=== PATIENT | female | born 2000 | race Caucasian/White ===

== ENCOUNTER 2022-03-26 04:30 | Emergency (ER) | payer SELFPAY ==
--- NOTE | ~2022-03-26 | CT_ITS ---
EXAMINATION: CT abdomen pelvis wo con DATE: 03/26/2022 05:54 INDICATION: Left lower quadrant abdominal pain. Constipation. TECHNIQUE: Computed tomography (CT) of the abdomen and pelvis was performed without intravenous contr ast. Automated exposure control and iterative reconstruction technique were employed. The dose-length product was 307.22 mGy-cm. COMPARISON: None. FINDINGS: The visualized portions of the lung bases demonstrate minimal atelectasis. No pleural effus ion. The heart size is normal. No pericardial effusion. There is mild pectus excavatum. There is a 5 mm cyst in the liver. The gallbladder is normal. Calcifications in the spleen are consistent with old granulomatous disease. The pancreas, adrenal glands, and right kidney are normal. There is mild left hydronephrosis. There is a 5 mm stone in proximal left ureter. There are no dilated loops of bowel. The appendix is not visualized. There is a 3.0 cm cyst in left ovary, likely a follicular cyst. There are no pathologically enlarged lymph nodes. There is no free intraperitoneal fluid. The bones are un remarkable. IMPRESSION: 1. 5 mm stone in proximal left ureter with mild left hydronephrosis. Reviewed, dictated and finalized at location A.
[2022-03-26 04:33] VITALS: BP 120/78; PULSE 116; RESP 20; TEMP 36.4; O2SAT 98
[2022-03-26 05:10] LABS: Basophils Percent Auto 0.3 % (0.2-1.2); Eosinophils Percent Auto 0.7 % (0-4.4); Hematocrit 40.3 % (37.0-47.0); Hemoglobin 13.4 g/dL (12.0-15.0); Immature Granulocyte Absolute 0.01 K/mm3 (0.00-0.031); Immature Granulocyte Percent A 0.2 % (0-0.5); Lymphocytes Absolute Auto 2.19 K/mm3 (0.9-3.2); Lymphocytes Percent Auto 35.6 % (18.3-44.2); Mean Corpuscular HGB Conc 33.3 g/dl (32-36); Mean Corpuscular Hemoglobin 30.2 pg (26-34); Mean Corpuscular Volume 90.8 fl (80-100); Mean Platelet Volume 11.3 fl (7.4-10.4); Monocytes Absolute Auto 0.6 K/mm3 (0.1-0.6); Monocytes Percent Auto 9.4 % (2.6-8.5); Neutrophils Absolute Auto 3.3 K/mm3 (1.3-6.7); Neutrophils Percent Auto 53.8 % (45.5-73.1); Platelet Count Result 234 k/mm3 (150-375); Red Blood Count 4.44 M/mm3 (4.2-5.4); White Blood Count 6.2 K/mm3 (4.5-10.0)
--- NOTE | 2022-03-26 05:19 | ED.ABDPAIN ---
HPI - Abdominal Pain General Chief Complaint: Abdominal Pain Stated Complaint: constipation, left flank pain Time Seen by Provider: 03/26/22 05:16 History of Present Illness HPI narrative: Patient is a 21-year-old female complaining of left lower quadrant pain, 8 out of 10, aching, accompanied by nausea that started 3 days ago. Patient states that she has not had a bowel movement for the past 3 days, has taken stool softeners but no relief. Patient denies any urinary symptoms, fever or chills. Related Data Allergies Allergy/AdvReac Type Severity Reaction Status Date / Time azithromycin Allergy Severe Anaphylactic Verified 03/26/22 04:44 Shock Penicillins Allergy Unknown Rash/swelling Verified 03/26/22 04:44 in throat Review of Systems Review of Systems: All systems reviewed & are unremarkable except as noted in HPI and below Constitutional: Constitutional: Denies body ache(s), Denies chills, Denies excessive sweating, Denies fatigue, Denies fever(s), Denies headache(s), Denies lethargy, Denies malaise, Denies weakness and Denies weight loss Eyes: Eyes: Denies blurry vision, Denies change in vision and Denies loss of vision ENT: Denies dizziness, Denies ear discharge, Denies headache(s), Denies lip swelling, Denies epistaxis, Denies nasal congestion, Denies neck pain, Denies throat swelling and Denies tongue swelling Cardiovascular: Cardiovascular: Denies chest pain, Denies chest pain at rest, Denies chest pain with activity, Denies diaphoresis, Denies rapid heart rate, Denies edema, Denies irregular heart rhythm, Denies lightheadedness, Denies palpitations, Denies dyspnea and Denies dyspnea on exertion Respiratory: Respiratory: Denies chest congestion, Denies cough, Denies hemoptysis, Denies dyspnea and Denies dyspnea on exertion Gastrointestinal: Gastrointestinal: Denies melena, Denies hematochezia, Denies diarrhea, Denies vomiting and Denies hematemesis Musculoskeletal: Musculoskeletal: Denies abnormal gait, Denies deformity, Denies joint swelling, Denies limited range of motion, Denies neck pain and Denies numbness Neurologic: Denies Abnormal speech present, Denies abnormal gait, Denies confusion, Denies dizziness, Denies headache(s), Denies focal weakness, Denies loss of vision, Denies numbness, Denies Other visual disturbances, Denies Sensory deficit (Neuro) and Denies weakness Psychiatric: Psychiatric: Denies confusion, Denies depression, Denies auditory hallucinations, Denies homicidal ideation and Denies suicidal ideation Endocrine: Endocrine: Denies cold intolerance, Denies excessive sweating, Denies fatigue, Denies heat intolerance and Denies palpitations Hematologic/Lymphatic: Hematologic/Lymphatic: Denies easy bleeding and Denies easy bruising Allergic/Immunologic: Allergic/Immunologic: Denies lip swelling, Denies throat swelling and Denies tongue swelling [facility] Family History Family History (Updated 10/27/15 @ 15:46 by DOCTOR UNKNOWN) Father Family history of malignant neoplasm of brain Other Family history of coronary artery disease Family history of malignant neoplasm of breast Social History Social History Smoking status: Never smoker Second hand tobacco smoke exposure: Yes Alcohol intake: never Comments Past medical history: None Exam Const: General: cooperative, healthy appearing, comfortable, no acute distress, well developed, alert and awake; No confusion Orientation/consciousness: oriented to person, oriented to place, oriented to time, patient oriented x3 and No confusion Limitations: no limitations HENMT: Head: normal to inspection, normocephalic and atraumatic Ears: hearing grossly normal bilaterally, TM normal on the right and TM normal on the left General nose exam: Normal external nose present, Normal nares present and No nasal discharge present Face and sinus: normal facial exam Mouth: Yes Normal oral and palatal mucosa present, Yes lip normal, Yes tongue normal
[2022-03-26 05:22] LABS: Alanine Aminotransferase 19 U/L (6-35); Albumin Level 4.3 g/dL (3.5-5.1); Alkaline Phosphatase 87 U/L (38-126); Anion Gap 13 mmol/L (8-16); Aspartate Amino Transferase 23 U/L (14-36); Bilirubin,Total 0.6 mg/dL (0.2-1.3); Blood Urea Nitrogen 9 mg/dL (7-17); Calcium 11.6 mg/dL (8.4-10.2); Carbon Dioxide 20 mmol/L (22-30); Chloride 103 mmol/L (98-107); Estimated Glomerular Filt Rate > 60; Glucose 117 mg/dL (65-110); Lipase 36 U/L (23-300); Potassium 3.6 mmol/L (3.4-5.0); Sodium 136 mmol/L (137-145)
[2022-03-26] MEDS: PROMETHAZINE HCL 25 MG/ML AMPUL 12.5 MG IV PUSH (05:23)
[2022-03-26] MEDS: SODIUM CHLORIDE 0.9% IV 1,000 ML 999 ML IV CONT (05:23)
[2022-03-26] MEDS: KETOROLAC 30 MG/ML VIAL (*BKC) IV PUSH (05:24)
[2022-03-26 05:41] LABS: Bacteria Urine Trace /hpf; Mucus Urine Heavy /lpf; RBC Urine 21-50 /hpf (0-2); Squamous Epithelial Cell Urine Many /hpf (Few); Transitional Epi Cells Urine Rare /hpf (None Seen)
[2022-03-26 05:53] LABS: Add Urine Microscopic? YES; Appearance Urine Clear (Clear); Bilirubin Urine 1+ (Negative); Blood Urine 2+ (Negative); Color Urine Yellow (Yellow); Glucose Urine UA Negative (Negative); Ketones Urine 2+ mg/dL (Negative); Leukocyte Esterase Ur Trace LEU/UL (Negative); Nitrate Urine Negative (Negative); Protein Urine Trace mg/dL (Negative)
[2022-03-26 06:02] VITALS: BP 117/69; PULSE 64; RESP 14; O2SAT 98
[2022-03-26] MEDS: TAMSULOSIN HCL 0.4 MG CAPSULE PO (07:23)
== END 2022-03-26 07:27 | disposition home or self-care (01) ==
PROVIDERS: Emergency Provider Emergency Medicine
DX: N13.2 Hydronephrosis with renal and ureteral calculous obstruction (principal)
CPT/HCPCS: 36415; 74176; 80053; 81001; 81025; 83690; 85025; 87086; 87088; 96361; 96374; 96375; 99284; A9270; J1885; J2550; J7030

== ENCOUNTER 2022-03-26 17:24 | Observation (INO) | payer MEDICAID, SELFPAY ==
--- NOTE | ~2022-03-26 | XR_ITS ---
EXAMINATION: XR retrograde pyelo w/stent LT DATE: 03/27/2022 14:00 CDT INDICATION: CYSTO LEFT SIDE . TECHNIQUE: 11 fluoroscopic images of the abdomen and pelvis were obtained during retrograde pyelograp hy with stent placement performed by the surgeon. I was not present in the operating room. Fluoroscop y exposure time was 71.1 seconds. Cumulative dose was [id number] mGy2. COMPARISON: CT abdomen and pelvis and x-ray abdomen 03/26/2022 FINDINGS: Fluoroscopic images document catheter and wire access into the right collecting system. Following ure teral stent placement distal coil projects over the bladder. Proximal coil not imaged. IMPRESSION: Fluoroscopic documentation of left retrograde pyelography with stent placement. Please refer to the o perative note for complete procedural details . Reviewed, dictated and finalized at location K. IMPRESSION: Fluoroscopic documentation of left retrograde pyelography with stent placement. Please refer to the operative note for complete procedural details .
--- NOTE | ~2022-03-26 | XR_ITS ---
EXAM: XR abdomen/kub 1V DATE: 03/26/2022 20:24 HISTORY: 5 mm l renal stone, HX OF STONES, PAIN ON LT SIDE . COMPARISON: CT abdomen and pelvis 03/26/2022. FINDINGS: Clear lung bases. Normal bowel gas pattern. No organomegaly. Unchanged 5 mm calculus proje cting over the left proximal ureter. Regional bones and soft tissues normal for age. IMPRESSION: Stable 5 mm proximal left ureteral stone. Reviewed, dictated and finalized at location K.
[2022-03-26 17:27] VITALS: BP 117/65; PULSE 102; RESP 22; TEMP 36.8; O2SAT 100
--- NOTE | 2022-03-26 18:14 | PC.NURSE ---
PA at bedside to assess pt.
--- NOTE | 2022-03-26 18:18 | ED.ABDPAIN ---
HPI - Abdominal Pain General Chief Complaint: Abdominal Pain Stated Complaint: renal stone, pain uncontrolled at home Time Seen by Provider: 03/26/22 18:10 History of Present Illness HPI narrative: 21-year-old female here for evaluation of left flank pain, nausea and vomiting for the past day and a half. Patient was seen in the ED this morning, was diagnosed with 5 mm proximal kidney stone on the left, was discharged after pain was controlled with IV medications. Patient states that shortly after coming home, the pain returned, she became nauseous, and has been unable to tolerate any p.o. intake. She was prescribed [place], states it has not helped her pain. Was also prescribed bactrim. She does have a history of kidney stones, has never had a procedure done. Related Data Allergies Allergy/AdvReac Type Severity Reaction Status Date / Time azithromycin Allergy Severe Anaphylactic Verified 03/26/22 04:44 Shock Penicillins Allergy Unknown Rash/swelling Verified 03/26/22 04:44 in throat Review of Systems Review of Systems: Gen.: Denies fevers or chills Eyes: Denies eye pain or visual change ENT: Denies congestion Respiratory: Denies shortness of breath or cough CV: Denies chest pain or palpitations GI: Reports nausea and vomiting. Denies abdominal pain or diarrhea denies burning, urgency, frequency or hematuria Musculoskeletal: Reports left flank pain. Denies back pain or muscle pain Neuro: Denies numbness, tingling, weakness or focal weakness Skin: Denies rash Except as documented, all other systems reviewed and negative [facility] Family History Family History (Updated 03/26/22 @ 23:55 by Pilar Pham RN) Father Family history of malignant neoplasm of brain Other Family history of malignant neoplasm of breast Other Family history of coronary artery disease Social History Social History Smoking status: Never smoker Second hand tobacco smoke exposure: No Alcohol intake: current Substance use: never Substance use type: marijuana Last use: 03/10- Spiritual care concerns: No Exam Narrative: APPEARANCE: Uncomfortable appearing. Head: Normocephalic and atraumatic. EYES: PERRLA/EOMI, conjunctivae clear NOSE: No nasal drainage EARS: External ear normal in appearance THROAT: Oropharynx is clear. Mucous membranes are moist. NECK: Supple. No adenopathy, no masses. RESPIRATORY: Airway patent, respirations nonlabored. Clear to auscultation bilaterally, no rales, rhonchi, wheezing. CARDIOVASCULAR: Regular rate and rhythm without murmurs, rubs, or gallops. ABDOMINAL: Normoactive bowel sounds. Soft, nontender, nondistended. No rebound tenderness or guarding. MUSCULOSKELETAL: No CVA tenderness. Extremities are warm and well-perfused. Moves all extremities well. No edema. NEURO: Normal speech. No focal neurologic deficits. SKIN: Skin is warm and dry. No rashes. PSYCHIATRIC: Normal affect/mood. Course Consultations Consultation #1: Spoke with Dr. Olivera, urologist, agrees with plan for admission. Will keep NPO. Recommends KUB for checking progression of stone. Date: 03/26/22 Time: 20:20 Consultation #2: Spoke with Dr. Polk, hospitalist, agrees with plan for admission. Date: 03/26/22 Time: 20:45 Vital Signs Vital signs: Vital Signs Temperature 98.3 F 03/26/22 17:27 Pulse Rate 102 H 03/26/22 17:27 Respiratory Rate 22 H 03/26/22 17:27 Blood Pressure 117/65 03/26/22 17:27 Pulse Oximetry 100 03/26/22 17:27 Oxygen Delivery Room Air 03/26/22 17:27 Temperature 98.3 F 03/26/22 17:27 Pulse Rate 102 H 03/26/22 17:27 Respiratory Rate 22 H 03/26/22 17:27 Blood Pressure 117/65 03/26/22 17:27 Pulse Oximetry 100 03/26/22 17:27 Oxygen Delivery Room Air 03/26/22 17:27 MDM - Abdominal Pain MDM Narrative Medical decision making narrative: 21-year-old female here for evaluation evaluation of
[2022-03-26] MEDS: HYDROmorphone HCL INJ (*CRX) 1 MG/ML SYR 0.5 MG IV PUSH (18:43)
[2022-03-26] MEDS: SODIUM CHLORIDE 0.9% IV 1,000 ML 999 ML IV CONT (18:43)
[2022-03-26] MEDS: ONDANSETRON INJ 4 MG/2 ML VIAL IV PUSH (18:43)
[2022-03-26 19:03] LABS: Basophils Percent Auto 0.4 % (0.2-1.2); Eosinophils Percent Auto 0.2 % (0-4.4); Hematocrit 39.6 % (37.0-47.0); Hemoglobin 12.9 g/dL (12.0-15.0); Immature Granulocyte Absolute 0.03 K/mm3 (0.00-0.031); Immature Granulocyte Percent A 0.4 % (0-0.5); Lymphocytes Absolute Auto 1.36 K/mm3 (0.9-3.2); Lymphocytes Percent Auto 16.2 % (18.3-44.2); Mean Corpuscular HGB Conc 32.6 g/dl (32-36); Mean Corpuscular Hemoglobin 30.1 pg (26-34); Mean Corpuscular Volume 92.5 fl (80-100); Mean Platelet Volume 11.3 fl (7.4-10.4); Monocytes Absolute Auto 0.5 K/mm3 (0.1-0.6); Monocytes Percent Auto 5.5 % (2.6-8.5); Neutrophils Absolute Auto 6.5 K/mm3 (1.3-6.7); Neutrophils Percent Auto 77.3 % (45.5-73.1); Platelet Count Result 211 k/mm3 (150-375); Red Blood Count 4.28 M/mm3 (4.2-5.4); Red Cell Distribution Width 13.1 % (11.5-14.5); White Blood Count 8.4 K/mm3 (4.5-10.0)
[2022-03-26 19:14] LABS: Alanine Aminotransferase 16 U/L (6-35); Albumin Level 4.2 g/dL (3.5-5.1); Alkaline Phosphatase 86 U/L (38-126); Anion Gap 12 mmol/L (8-16); Aspartate Amino Transferase 21 U/L (14-36); Bilirubin,Total 0.6 mg/dL (0.2-1.3); Blood Urea Nitrogen 9 mg/dL (7-17); Calcium 11.2 mg/dL (8.4-10.2); Carbon Dioxide 21 mmol/L (22-30); Chloride 105 mmol/L (98-107); Estimated CRCL calculation 64 ml/min; Estimated Glomerular Filt Rate > 60; Glucose 89 mg/dL (65-110); Potassium 3.5 mmol/L (3.4-5.0); Sodium 138 mmol/L (137-145)
[2022-03-26] MEDS: MORPHINE SULFATE (*CRX) 4 MG/ML INJ IV PUSH (20:07)
--- NOTE | 2022-03-26 20:32 | PC.NURSE ---
Patient off unit to Radiology
--- NOTE | 2022-03-26 20:41 | PM.IMHP ---
H&P: HPI History of Present Illness Date/Time: 03/26/22 20:41 Chief Complaint: Left flank pain Narrative: This is a 21-year-old female with past medical history significant for hereditary familial hypercalcemia, kidney stone, patient presents to the emergency room for 2nd time after she was seen and evaluated the day prior or for left flank pain and back pain on the left side of 1 day duration in emergency room CT of abdomen and pelvis showed a 5 mm stone patient was discharged home on Flomax and pain medication however returned due to worsening pain nausea vomiting unable to take medications and unable to eat. Patient denies any fevers, rigors, chills. Abdominal x-ray showed a 5 mm stone again. Patient has been admitted for further evaluation management and treatment. Review of Systems Review of Systems: Right flank pain, nausea, vomiting. Constitutional: Constitutional: Denies chills, Denies fever(s), Denies malaise, Denies night sweats, Reports poor appetite and Denies weakness Eyes: Eyes: Denies change in vision ENT: Denies dysphagia, Denies vertigo, Denies dizziness and Denies odynophagia Cardiovascular: Cardiovascular: Denies chest pain, Denies syncope, Denies irregular heart rhythm, Denies lightheadedness, Denies palpitations, Denies dyspnea on exertion and Denies paroxysmal nocturnal dyspnea Respiratory: Respiratory: Denies chest congestion, Denies cough, Denies excessive phlegm production and Denies pain on inspiration Gastrointestinal: Gastrointestinal: Reports abdominal pain, Denies dyspepsia, Denies heartburn, Denies diarrhea, Reports nausea and Reports vomiting Genitourinary: Comments: Left flank Musculoskeletal: Musculoskeletal: Denies myalgias, Denies joint swelling and Denies muscle weakness Integumentary/Breasts: Skin/Breast: Denies rash Neurologic: Denies focal weakness and Denies Sensory deficit (Neuro) Psychiatric: Psychiatric: Reports no additional psychiatric complaints and Reports as per HPI Endocrine: Endocrine: Denies cold intolerance, Denies fatigue, Denies flushing, Denies heat intolerance, Denies polyphagia, Denies polydipsia and Denies palpitations Hematologic/Lymphatic: Hematologic/Lymphatic: Reports no additional hematologic/lymphatic complaints and Reports as per HPI Allergic/Immunologic: Allergic/Immunologic: Reports no additional allergic/immunologic complaints and Reports as per HPI [facility] Family History Family History (Updated 03/26/22 @ 23:55 by Pilar Pham, WILFREDO) Father Family history of malignant neoplasm of brain Other Family history of malignant neoplasm of breast Other Family history of coronary artery disease Social History Social History Smoking status: Never smoker Second hand tobacco smoke exposure: No Alcohol intake: current Substance use: never Substance use type: marijuana Last use: 03/10- Spiritual care concerns: No Meds Home Medications and Allergies Home Medications Medication Instructions Recorded Confirmed Type hydrocodone 5 mg-acetaminophen 325 1 tablet PO Q6H PRN pain #10 tabs 03/26/22 03/27/22 Rx mg tablet tamsulosin 0.4 mg capsule (Flomax) 0.4 mg PO DAILY #5 caps 03/26/22 03/27/22 Rx Allergies Allergy/AdvReac Type Severity Reaction Status Date / Time azithromycin Allergy Severe Anaphylactic Verified 03/26/22 04:44 Shock Penicillins Allergy Unknown Rash/swelling Verified 03/26/22 04:44 in throat Vital Signs Vital Signs - 24 hr 03/26/22 17:27 Temperature 98.3 F Pulse Rate 102 H Respiratory Rate 22 H Blood Pressure 117/65 Pulse Oximetry 100 Oxygen Delivery Room Air Exam Narrative: Patient is laying in a stretcher Const: General: comfortable, no acute distress, well developed, alert, awake and tired appearing Nutritional Appearance: average body habitus Orientation/consciousness: patient oriented x3 HENMT: Head: normal to
[2022-03-26] MEDS: MORPHINE SULFATE (*CRX) 2 MG/ML INJ IV PUSH (22:04)
[2022-03-26 22:05] LABS: SARS-CoV-2 RNA PCR Positive
[2022-03-26 23:35] VITALS: BMI 25.5
--- NOTE | 2022-03-26 23:47 | ADMGEN ---
This patient, Janiya Godoy, was admitted to [facility] Surg Room 313-01. Patient/family oriented to hospital policies and general routines including ID bracelet, bed and alarms, visiting hours, pain management, procedures, bathroom and other care routines, personal items, smoking policy, room service/diet, and visiting hours. Information on how to activate the Rapid Response Team has been discussed. Patient/Family are encouraged to report perceived risks to care and to ask questions if they do not understand what they are told or what they should do.
[2022-03-27] VITALS (12 sets, daily range): BP systolic 94–133; BP diastolic 52–79; PULSE 55–85; RESP 12–20; TEMP 35.9–36.3; O2SAT 98–100
[2022-03-27] MEDS: MORPHINE SULFATE (*CRX) 2 MG/ML INJ 1 MG IV PUSH ×2 (08:44→16:27)
--- NOTE | 2022-03-27 09:13 | WPDURCON ---
Assessment and Plan Assessment and plan (1) Left ureteral calculus: Code(s): N20.1 - Calculus of ureter Status: Acute Assessment and Plan: Proceed with cystoscopy, left retrograde pyelogram, left stent placement, possible ureteroscopy with laser Urology Consult Note HPI Date Seen: 03/27/22 Time Seen: 08:30 Requesting Physician: JUWAN Gonzales Primary Care Provider: UNKNOWN,DOCTOR Consult Narrative Reason for consult: Left ureteral calculus Narrative: Janiya Godoy is a 21 year old female who presented to the emergency room for a 2nd time with left renal colic. She was found have a left proximal ureteral stone measuring between 5-6 mm. She was admitted for pain control and further management. She states she has had 1 prior stone when she was and she passed that. Denies any fevers at home. Review of Systems Review of Systems: All systems reviewed & are unremarkable except as noted in HPI and below PMFSH Family History Family History Father Family history of malignant neoplasm of brain Other Family history of malignant neoplasm of breast Other Family history of coronary artery disease Social History Social History Smoking status: Never smoker Second hand tobacco smoke exposure: No Alcohol intake: current Substance use: never Substance use type: marijuana Last use: 03/10- Spiritual care concerns: No Meds Home Medications and Allergies Home Medications Medication Instructions Recorded Confirmed Type hydrocodone 5 mg-acetaminophen 325 1 tablet PO Q6H PRN pain #10 tabs 03/26/22 03/27/22 Rx mg tablet tamsulosin 0.4 mg capsule (Flomax) 0.4 mg PO DAILY #5 caps 03/26/22 03/27/22 Rx Allergies Allergy/AdvReac Type Severity Reaction Status Date / Time azithromycin Allergy Severe Anaphylactic Verified 03/26/22 04:44 Shock Penicillins Allergy Unknown Rash/swelling Verified 03/26/22 04:44 in throat Vital Signs Vital Signs - 24 hr 03/26/22 17:27 Temperature 36.8 C Pulse Rate 102 H Respiratory Rate 22 H Blood Pressure 117/65 Pulse Oximetry 100 Oxygen Delivery Room Air Exam Const: General: cooperative; No comfortable Resp: Effort & Inspection: normal respiratory effort Cardio: Rate: tachycardic Results Labs CBC & Chem 7: 03/26/22 18:49 03/26/22 18:49 Labs: Short CBC 03/26/22 Range/Units 18:49 WBC 8.4 (4.5-10.0) K/mm3 Hgb 12.9 (12.0-15.0) g/dL Hct 39.6 (37.0-47.0) % Plt Count 211 (150-375) k/mm3 BMP 03/26/22 18:49 Sodium 138 Potassium 3.5 Chloride 105 Carbon Dioxide 21 L BUN 9 Creatinine 1.00 Glucose 89 Calcium 11.2 H Liver Function 03/26/22 Range/Units 18:49 Total Bilirubin 0.6 (0.2-1.3) mg/dL AST 21 (14-36) U/L ALT 16 (6-35) U/L Alkaline Phosphatase 86 (38-126) U/L Albumin 4.2 (3.5-5.1) g/dL
--- NOTE | 2022-03-27 09:17 | WPDHPUPDATE1 ---
History and Physical Update Update Date/Time: 03/27/22 09:17 History and Physical has been reviewed, including an updated exam of the patient. There are NO changes in the patient's condition. Risks, benefits, and alternatives have been discussed and questions answered. Patient agrees to proceed with procedure.
--- NOTE | 2022-03-27 10:59 | WPDANESEPPF ---
Anes - Initial Pre Proc Eval Procedure: Operation Date: 03/27/22 11:15 Proposed Procedures p Cystoscopy, Left Stent Placement, Possible Left Ureteroscopy, Possible Left Retrograde Pyelogram, Possible Left Stone Extraction, Possible Holmium Laser Procedure - Edgar Olivera MD Date/Time: 03/27/22 10:59 Surgeon: JUWAN Gonzales Pre Op Diagnosis: left nephrolithiasis Patient Data Age: 21 Gender: F Height: 1.6 m Weight: 65.5 kg Last Vital Signs Temp 36.8 C 03/26/22 17:27 Pulse 102 H 03/26/22 17:27 Resp 20 03/27/22 08:44 BP 117/65 03/26/22 17:27 Pulse Ox 98 03/27/22 08:44 O2 Del Method Room Air 03/27/22 08:44 Allergies Allergy/AdvReac Type Severity Reaction Status Date / Time azithromycin Allergy Severe Anaphylactic Verified 03/26/22 04:44 Shock Penicillins Allergy Unknown Rash/swelling Verified 03/26/22 04:44 in throat Home Medications Medication Instructions Recorded Confirmed Type hydrocodone 5 mg-acetaminophen 325 1 tablet PO Q6H PRN pain #10 tabs 03/26/22 03/27/22 Rx mg tablet tamsulosin 0.4 mg capsule (Flomax) 0.4 mg PO DAILY #5 caps 03/26/22 03/27/22 Rx Laboratory Tests 03/26/22 03/26/22 03/26/22 18:49 18:49 21:24 WBC 8.4 K/mm3 K/mm3 (4.5-10.0) RBC 4.28 M/mm3 M/mm3 (4.2-5.4) Hgb 12.9 g/dL g/dL (12.0-15.0) Hct 39.6 % % (37.0-47.0) MCV 92.5 fl fl (80-100) MCH 30.1 pg pg (26-34) MCHC 32.6 g/dl g/dl (32-36) RDW 13.1 % % (11.5-14.5) Plt Count 211 k/mm3 k/mm3 (150-375) MPV 11.3 fl H fl (7.4-10.4) Immature Gran % (Auto) 0.4 % % (0-0.5) Neut % (Auto) 77.3 % H % (45.5-73.1) Lymph % (Auto) 16.2 % L % (18.3-44.2) [place] % (Auto) 5.5 % % (2.6-8.5) Eos % (Auto) 0.2 % % (0-4.4) Baso % (Auto) 0.4 % % (0.2-1.2) Lymph # (Auto) 1.36 K/mm3 K/mm3 (0.9-3.2) [place] # (Auto) 0.5 K/mm3 K/mm3 (0.1-0.6) Eos # (Auto) 0.0 K/mm3 K/mm3 (0-0.3) Baso # (Auto) 0.0 K/mm3 K/mm3 (0.0-0.1) Abs Immat Gran (auto) 0.03 K/mm3 K/mm3 (0.00-0.031) Absolute Neuts (auto) 6.5 K/mm3 K/mm3 (1.3-6.7) Absolute Nucleated RBC 0.0 K/mm3 K/mm3 (0.0-0.012) Nucleated RBC % 0.0 % % (0.0-0.2) Sodium 138 mmol/L mmol/L (137-145) Potassium 3.5 mmol/L mmol/L (3.4-5.0) Chloride 105 mmol/L mmol/L (98-107) Carbon Dioxide 21 mmol/L L mmol/L (22-30) Anion Gap 12 mmol/L mmol/L (8-16) BUN 9 mg/dL mg/dL (7-17) Creatinine 1.00 mg/dL mg/dL (0.7-1.0) Estim Creat Clear Calc 64 ml/min ml/min Estimated GFR > 60 (59 - ) Glucose 89 mg/dL mg/dL (65-110) Calcium 11.2 mg/dL H mg/dL (8.4-10.2) Total Bilirubin 0.6 mg/dL mg/dL (0.2-1.3) AST 21 U/L U/L (14-36) ALT 16 U/L U/L (6-35) Alkaline Phosphatase 86 U/L U/L (38-126) Total Protein 8.0 g/dL g/dL (6.3-8.2) Albumin 4.2 g/dL g/dL (3.5-5.1) SARS-CoV-2 RNA (RT-PCR) Positive A Patient hx anesthesia problems: none Family hx anesthesia problems: none Results Review: All pre-operative results and documents have been reviewed as part of the pre-operative evaluation. [facility] Past Medical History Medical History (Updated 03/27/22 @ 10:59 by Gerald Hayden DO) Anxiety COVID Depression Renal stones Family History Family History Father Family history of malignant neoplasm of brain Other Family history of malignant neoplasm of breast Other Family history of coronary artery disease Social History Social History Smoking status: Never smoker Second
--- NOTE | 2022-03-27 13:25 | PC.NURSE ---
Report called to [facility].
--- NOTE | 2022-03-27 13:34 | PM.IMPN ---
Progress Note: A&P Assessment and Plan (1) Acute unilateral obstructive uropathy: Code(s): N13.9 - Obstructive and reflux uropathy, unspecified Status: Acute Assessment and Plan: - Pt. to OR today with Dr. Olivera for Cystoscopy. - PRN pain meds and Anti-emetics as needed. - Continue IVF for hydration. (2) Flank pain: Code(s): R10.9 - Unspecified abdominal pain Status: Acute Assessment and Plan: - See Plan for problem #1 (3) Nausea and vomiting: Code(s): R11.2 - Nausea with vomiting, unspecified Status: Acute Assessment and Plan: - PRN Antiemetics. Time Spent With Patient Time with patient: 15 - 25 minutes Subjective Date/time seen: 03/27/22 0800 this 21-year-old female patient was examined at the bedside today in interval assessment just prior to being taken to the operating room by Urology for an obstructing urinary stone. She does complain of pain that is on the left side around the left flank to the left back and radiating around to the left lower quadrant. Subsequently and coincidentally this patient was found to be positive for COVID, knowing this Urology still desires to take her to the operating room. Patient does have a history of kidney stones that she was able to pass while she was . She denies any chest pain, dyspnea, nausea, vomiting or diarrhea at this time. Review of Systems Review of Systems: All systems reviewed & are unremarkable except as noted in HPI and below Exam Const: General: in distress (Secondary to pain. ) Other: Thin female patient. HENMT: General nose exam: Normal nares present and no epistaxis Mouth: Yes moist mucous membranes Eyes: General: appearance normal, both eyes and all related structures Sclera: sclerae normal and normal sclerae Pupils: Equal, round and reactive pupils present EOM: EOMs intact bilaterally Neck: Neck: supple and no JVD Thyroid: thyroid normal Carotids: no bruits Lymphatic: lymphadenopathy not noted Resp: Effort & Inspection: normal respiratory effort Auscultation: clear to auscultation bilaterally Cardio: Rate: regular rate Rhythm: regular rhythm Heart sounds: no gallops, no murmurs and no rubs GI: Inspection: non-distended GI Palp: Yes Soft to palpation and Yes Tenderness to palpation present (GI) (Left flank, LLQ ) Skin: General skin exam: normal color and no rashes or lesions noted Neuro: General: gait normal Speech: normal speech Motor exam (neuro): 5/5 motor strength present throughout and Normal motor muscle tone present throughout Sensory Exam: normal sensation Extrem: General: normal to inspection, no edema and no pedal edema Other: Freely and equally MAEW without deficits. Psych: Mental Status: mental status grossly normal Affect: normal affect Objective Data Vital Signs Vital Signs: Vital Signs - 24 hr 03/26/22 17:27 03/27/22 08:44 03/27/22 10:59 Temperature 98.3 F 97.3 F L Pulse Rate 102 H 85 Respiratory Rate 22 H 20 20 Blood Pressure 117/65 111/70 Pulse Oximetry 100 98 100 Oxygen Delivery Room Air Room Air Intake/Output Intake/Output: Intake & Output 03/24/22 03/25/22 03/26/22 03/27/22 23:59 23:59 23:59 23:59 Intake Total 1000 0 Output Total 200 Balance 1000 -200 Meds/Results Medications: Active Medications Generic Name Dose Route Start Last Admin Trade Name Freq PRN Reason Stop Dose Admin Hydrocodone Bitart/Acetaminophen 1 tab 03/27/22 01:42 Hydrocodone/Acetaminophen (*Crx) 5-325 Mg Tablet PO Q6H PRN Pain Rated 4-6 Fentanyl Citrate 25 mcg 03/27/22 10:59 Fentanyl Citrate Inj (*Crx) 100 Mcg/2 Ml Vial IV PUSH Q2M PRN Pain Lactated Ringer's 1,000 mls @ 30 mls/hr 03/27/22 11:00 Lr - Lactated Ringers Iv IV CONT .Q24H LETI Lactated Ringer's 1,000 mls @ 30 mls/hr 03/27/22 11:00 Lr - Lactated Ringers Iv IV CONT .Q24H LETI Morphine Sulfate 1 mg 03/27/22 08:20
--- NOTE | 2022-03-27 13:50 | PC.NURSE ---
To OR via bed. Voiding. Ring removed and placed in patient's backpack in room. Grandmother updated that patient was heading to surgery.
[2022-03-27] MEDS: ceFAZolin SODIUM 1 GM VIAL 2 GM IV PUSH (14:12)
[2022-03-27] MEDS: LIDOCAINE HCL 2% GEL UROJET 10 ML PKG MUCOUS MEM (14:13)
--- NOTE | 2022-03-27 14:50 | W.PM.PROC2 ---
Procedure Note - Detailed Date of Procedure 03/27/22 Pre-op Diagnosis left ureteral calculus 6 mm Post-op Diagnosis Same Procedure Performed Cystoscopy, left retrograde pyelogram, left ureteroscopy with holmium laser, stone extraction, stent placement 4.8 Monegasque contour Surgeon Edgar Olivera MD Anesthesia General Description of Procedure Patient is taken to the operative suite correctly identified. Once anesthesia was obtained she was placed in the dorsal lithotomy position and prepped and draped usual sterile fashion. Twenty-two Monegasque scope was inserted into the bladder. The left ureteral orifice was cannulated with a guidewire. It was apparent that stone was pushed back up into the kidney. At this point we dilated with an 810 dilator. Mini flexible ureteroscope easily passed up into the kidney. The stone was visualized. It was grasped. Other was too large to retrieve piece was 272 micron fiber to fragment the stone into numerous small pieces. Some of the smaller pieces were sent for analysis. Reinspection revealed no residual stones in the ureter. Pyelogram was then performed to confirm placement the stent. A 4.8 Monegasque contour stent was then placed with the proximal end coiled in the renal pelvis and the distal in the bladder. 2% viscous was inserted into the urethra patient is taken recovery stable condition. She be discharged home from my standpoint and follow up in a week's time for stent removal. Urine Output 200 Drains Yes Packing No Pathology Yes Complications No immediate complications Condition Stable Disposition PACU
[2022-03-27] MEDS: LACTATED RINGERS 1,000 ML 30 ML IV CONT ×2 (15:00)
--- NOTE | 2022-03-27 15:50 | PC.NURSE ---
Returned from OR via bed. Voiding.
[2022-03-27] MEDS: ONDANSETRON INJ 4 MG/2 ML VIAL IV PUSH (17:56)
[2022-03-28] MEDS: HYDROcodone/acetaminophen (*CRX) 5-325 MG TABLET 1 TAB PO ×2 (02:31→08:24)
[2022-03-28 06:00] VITALS: BP 112/62; PULSE 88; RESP 16; TEMP 36.9; O2SAT 99
[2022-03-28 06:43] LABS: Basophils Percent Auto 0.5 % (0.2-1.2); Eosinophils Absolute Auto 0.1 K/mm3 (0-0.3); Eosinophils Percent Auto 0.9 % (0-4.4); Hematocrit 35.5 % (37.0-47.0); Hemoglobin 11.6 g/dL (12.0-15.0); Immature Granulocyte Absolute 0.01 K/mm3 (0.00-0.031); Immature Granulocyte Percent A 0.2 % (0-0.5); Lymphocytes Absolute Auto 2.16 K/mm3 (0.9-3.2); Lymphocytes Percent Auto 32.6 % (18.3-44.2); Mean Corpuscular HGB Conc 32.7 g/dl (32-36); Mean Corpuscular Hemoglobin 30.4 pg (26-34); Mean Corpuscular Volume 93.2 fl (80-100); Mean Platelet Volume 11.3 fl (7.4-10.4); Monocytes Absolute Auto 0.7 K/mm3 (0.1-0.6); Monocytes Percent Auto 10.3 % (2.6-8.5); Neutrophils Absolute Auto 3.7 K/mm3 (1.3-6.7); Neutrophils Percent Auto 55.5 % (45.5-73.1); Platelet Count Result 207 k/mm3 (150-375); Red Blood Count 3.81 M/mm3 (4.2-5.4); White Blood Count 6.6 K/mm3 (4.5-10.0)
[2022-03-28 06:57] LABS: Alanine Aminotransferase 18 U/L (6-35); Albumin Level 3.4 g/dL (3.5-5.1); Alkaline Phosphatase 78 U/L (38-126); Anion Gap 6 mmol/L (8-16); Aspartate Amino Transferase 20 U/L (14-36); Bilirubin,Total 0.2 mg/dL (0.2-1.3); Blood Urea Nitrogen 8 mg/dL (7-17); Calcium 9.7 mg/dL (8.4-10.2); Carbon Dioxide 27 mmol/L (22-30); Chloride 103 mmol/L (98-107); Estimated CRCL calculation 89 ml/min; Estimated Glomerular Filt Rate > 60; Glucose 98 mg/dL (65-110); Magnesium 1.8 mg/dL (1.6-2.3); Potassium 3.6 mmol/L (3.4-5.0); Sodium 136 mmol/L (137-145)
--- NOTE | 2022-03-28 08:00 | PM.DS ---
DS: Admitting Diagnosis Discharge Date 03/28/2022 Admitting Diagnosis Acute unilateral obstuctive uropathy, Flank pain, nausea and vomiting DS: Discharge Diagnosis Discharge Diagnosis (1) Acute unilateral obstructive uropathy: Code(s): N13.9 - Obstructive and reflux uropathy, unspecified Status: Acute Assessment and Plan: - OR intervention yesterday by Dr. Olivera consisting of Cystoscopy, left retrograde pyelogram, left ureteroscopy with holmium laser, stone extraction and stent placement. He will follow up with the patient in one week for stent removal. - PRN pain meds. (2) Flank pain: Code(s): R10.9 - Unspecified abdominal pain Status: Acute Assessment and Plan: - See Plan for problem #1 (3) Nausea and vomiting: Code(s): R11.2 - Nausea with vomiting, unspecified Status: Acute Assessment and Plan: - PRN Antiemetics. (4) COVID-19: Code(s): U07.1 - COVID-19 Status: Acute Assessment and Plan: - Pt. will be advised to quarantine for an additional 5 days as she tested positive for COVID during this hospitalization. - Currently asymptomatic. DS: Summary Hospital Course Reason for hospitalization: Obstructive Uropathy Hospital Course: This 21 year old male patient with past medical history significant for hereditary familial hypercalcemia, and prior renal stones presented to the ER on 03/26/22, with complaints of having left flank pain for one day prior to arrival. She has passed a renal stone previously and it felt much like that again. She initially presented to the ER the day prior and workup was performed and the CT of the abdomen and pelvis showed a 5 mm stone. She was given Flomax and pain meds, but returned again with worsening of pain and nausea/vomiting and was unable to eat. Imaging again showed a 5 mm stone and pt was subsequently admitted to the hospital and Urology was consulted. She was taken to the OR yesterday by Dr. Olivera and underwent Cystoscopy, left retrograde pyelogram, left ureteroscopy with holmium laser, stone extraction, and stent placement. During this admission, she was also found to have acute COVID-19 infection. She is currently asymptomatic. She will be advised to quarantine at home for 5 days. She is stable, VSS, labs are unremarkable. She is stable for discharge at this time and she will follow up with Dr. Olivera in one week for stent removal. Status at Discharge Functional status at discharge: independent ambulation Overall status at discharge: patient is back to baseline Time Spent with Patient Time attestation: Total time spent providing and/or coordinating discharge services: Time spent: Greater than 30 minutes Specific discharge activities: POC, discharge plan and instructions Exam Const: General: comfortable and no acute distress HENMT: Ears: TM's normal bilaterally General nose exam: Normal nares present Eyes: General: appearance normal, both eyes and all related structures Sclera: sclerae normal and normal sclerae Pupils: Equal, round and reactive pupils present EOM: EOMs intact bilaterally Neck: Neck: supple and no JVD Thyroid: thyroid normal Carotids: no bruits Lymphatic: lymphadenopathy not noted Resp: Effort & Inspection: normal respiratory effort Auscultation: clear to auscultation bilaterally Cardio: Rate: regular rate Rhythm: regular rhythm Heart sounds: no gallops, no murmurs and no rubs GI: Inspection: non-distended GI Palp: Yes Soft to palpation and No Tenderness to palpation present (GI) Auscultation: normal bowel sounds Skin: General skin exam: normal color and no rashes or lesions noted Wounds: no wounds Neuro: General: gait normal Motor exam (neuro): 5/5 motor strength present throughout and Normal motor muscle tone present throughout Sensory Exam: normal sensation Extrem: General: normal to inspection, no edema and no pedal edema Other: Pt. freely and equally MAEW without defi
[2022-03-28] MEDS: TAMSULOSIN HCL 0.4 MG CAPSULE PO (08:24)
[2022-03-28 08:26] VITALS: RESP 16; O2SAT 100
--- NOTE | 2022-03-28 12:52 | P.PNAN_ITS ---
Anes - Prog Note Post-Op Date/Time: 03/28/22 12:52 Cardiovascular status: normal Respiratory status: normal Airway patency: baseline Mental status: baseline Post-Op hydration status: normal Vital Signs: Last Vital Signs Temp 98.5 F 03/28/22 06:00 Pulse 88 03/28/22 06:00 Resp 16 03/28/22 08:26 BP 112/62 03/28/22 06:00 Pulse Ox 100 03/28/22 08:26 O2 Del Method Room Air 03/28/22 08:26 O2 Flow Rate 6 03/27/22 15:15 Pain Score (VAS): ZACH I/O: Intake & Output 03/27/22 03/28/22 03/28/22 23:59 07:59 15:59 Intake Total 250 550 260 Output Total 500 800 Balance -250 550 -540 Laboratory Tests 03/28/22 06:23 03/28/22 06:23 03/28/22 03/28/22 06:23 06:23 WBC 6.6 RBC 3.81 L Hgb 11.6 L Hct 35.5 L MCV 93.2 MCH 30.4 MCHC 32.7 RDW 13.0 Plt Count 207 MPV 11.3 H Immature Gran % (Auto) 0.2 Neut % (Auto) 55.5 Lymph % (Auto) 32.6 [place] % (Auto) 10.3 H Eos % (Auto) 0.9 Baso % (Auto) 0.5 Lymph # (Auto) 2.16 [place] # (Auto) 0.7 H Eos # (Auto) 0.1 Baso # (Auto) 0.0 Abs Immat Gran (auto) 0.01 Absolute Neuts (auto) 3.7 Absolute Nucleated RBC 0.0 Nucleated RBC % 0.0 Sodium 136 L Potassium 3.6 Chloride 103 Carbon Dioxide 27 Anion Gap 6 L BUN 8 Creatinine 0.70 Estim Creat Clear Calc 89 Estimated GFR > 60 Glucose 98 Calcium 9.7 Magnesium 1.8 Total Bilirubin 0.2 AST 20 ALT 18 Alkaline Phosphatase 78 Total Protein 6.0 L Albumin 3.4 L Post-procedural complaints: none Patient Feedback: Patient satisfied with anesthetic care. Other Findings: per Chart Info
== END 2022-03-28 10:35 | disposition home or self-care (01) ==
LOC: ANHED 20:20 → ANH3MEDSUR 21:16
PROVIDERS: Physician Assistant; Urology; Admitting Provider Internal Medicine; Emergency Provider Emergency Medicine; Visit Provider Nurse Practitioner Adult Health
PROC: (CPT 52352; principal; 2022-03-27 11:15)
DX: N20.1 Calculus of ureter (principal); N13.9 Obstructive and reflux uropathy, unspecified; R11.2 Nausea with vomiting, unspecified; U07.1 COVID-19; F41.9 Anxiety disorder, unspecified; F32.A Depression, unspecified; E66.3 Overweight; Z68.25 Body mass index [BMI] 25.0-25.9, adult; F12.90 Cannabis use, unspecified, uncomplicated; Z79.891 Long term (current) use of opiate analgesic; Z79.899 Other long term (current) drug therapy
CPT/HCPCS: 52356; 36415; 74018; 74420; 80053; 82365; 83735; 85025; 88300; 96361; 96374; 96375; 96376; 99285; A9270; C1758; C1769; C2617; C9803; G0378; J0690; J1100; J1170; J2250; J2270; J2405; J2704; J3010; J7030; J7120; U0003; U0005

== ENCOUNTER 2022-04-02 15:03 | Emergency (ER) | payer OTHER, MEDICAID, SELFPAY ==
[2022-04-02 15:14] VITALS: BP 126/89; PULSE 136; RESP 14; TEMP 36.6; O2SAT 98
[2022-04-02 15:29] LABS: Basophils Percent Auto 0.3 % (0.2-1.2); Eosinophils Absolute Auto 0.1 K/mm3 (0-0.3); Hematocrit 43.1 % (37.0-47.0); Hemoglobin 13.9 g/dL (12.0-15.0); Immature Granulocyte Absolute 0.02 K/mm3 (0.00-0.031); Immature Granulocyte Percent A 0.2 % (0-0.5); Lymphocytes Absolute Auto 1.26 K/mm3 (0.9-3.2); Lymphocytes Percent Auto 12.4 % (18.3-44.2); Mean Corpuscular HGB Conc 32.3 g/dl (32-36); Mean Corpuscular Hemoglobin 30.2 pg (26-34); Mean Corpuscular Volume 93.7 fl (80-100); Mean Platelet Volume 11.1 fl (7.4-10.4); Monocytes Absolute Auto 0.6 K/mm3 (0.1-0.6); Monocytes Percent Auto 5.9 % (2.6-8.5); Neutrophils Absolute Auto 8.2 K/mm3 (1.3-6.7); Neutrophils Percent Auto 80.2 % (45.5-73.1); Platelet Count Result 308 k/mm3 (150-375); White Blood Count 10.2 K/mm3 (4.5-10.0)
[2022-04-02 15:39] LABS: Alanine Aminotransferase 35 U/L (6-35); Albumin Level 4.6 g/dL (3.5-5.1); Alkaline Phosphatase 103 U/L (38-126); Anion Gap 9 mmol/L (8-16); Aspartate Amino Transferase 31 U/L (14-36); Bilirubin,Total 0.5 mg/dL (0.2-1.3); Blood Urea Nitrogen 9 mg/dL (7-17); Calcium 11.2 mg/dL (8.4-10.2); Carbon Dioxide 24 mmol/L (22-30); Chloride 105 mmol/L (98-107); Estimated CRCL calculation 89 ml/min; Estimated Glomerular Filt Rate > 60; Glucose 96 mg/dL (65-110); Potassium 4.2 mmol/L (3.4-5.0); Sodium 138 mmol/L (137-145)
[2022-04-02 16:15] LABS: Appearance Urine Cloudy (Clear); Bilirubin Urine 1+ (Negative); Blood Urine 3+ (Negative); Color Urine Yellow (Yellow); Glucose Urine UA Negative (Negative); Ketones Urine 2+ mg/dL (Negative); Leukocyte Esterase Ur Negative LEU/UL (Negative); Nitrate Urine Negative (Negative); Protein Urine 3+ mg/dL (Negative); Specific Grav Ur >= 1.030 (1.001-1.035); Urobilinogen Urine 0.2 mg/dL (<2.0)
[2022-04-02 16:19] LABS: Mucus Urine Heavy /lpf; RBC Urine >75 /hpf (0-2); Squamous Epithelial Cell Urine Many /hpf (Few)
[2022-04-02 16:20] LABS: Add Urine Microscopic? YES
[2022-04-02 16:47] VITALS: BP 121/80; PULSE 83; RESP 15; O2SAT 100
[2022-04-02 16:54] VITALS: PULSE 88; RESP 8; O2SAT 99
--- NOTE | 2022-04-02 17:02 | ED.FEMALEGU ---
HPI - Female Genitourinary General Chief complaint: Urogenital-Female Stated complaint: lower L back pain Time Seen by Provider: 04/02/22 16:45 History of Present Illness HPI Narrative: Patient is a 21-year-old female with history of recurrent nephrolithiasis here for evaluation of left lower quadrant abdominal pain and hematuria today. She is 6 days post op from cystoscopy, left retrograde pyelogram, left uteroscopy with laser, stone extraction and stent placement by Dr. Olivera for a 5mm left proximal kidney stone. She had the stent removed in office today. She states that she was told that she would have some hematuria but states that she has had dime-sized blood clots which was worrisome to her today. Also notes left sided abdominal pain and flank pain that is moderate, intermittent in nature. Unrelieved by Tylenol. Related Data Allergies Allergy/AdvReac Type Severity Reaction Status Date / Time azithromycin Allergy Severe Anaphylactic Verified 04/02/22 16:46 Shock Penicillins Allergy Unknown Rash/swelling Verified 04/02/22 16:46 in throat Review of Systems Review of Systems: Gen: Denies fevers or chills Eyes: Denies eye pain or visual change ENT: Denies congestion Respiratory: Denies shortness of breath or cough CV: Denies chest pain or palpitations GI: reports left sided abdominal pain and nausea. Denies emesis or diarrhea reports hematuria. denies burning, urgency, frequency Musculoskeletal: Denies back pain or muscle pain Neuro: Denies numbness, tingling, weakness or focal weakness Skin: Denies rash Except as documented, all other systems reviewed and negative [facility] Past Medical History Medical History Anxiety COVID Depression Renal stones Family History Family History Father Family history of malignant neoplasm of brain Other Family history of malignant neoplasm of breast Other Family history of coronary artery disease Social History Social History Smoking status: Never smoker Second hand tobacco smoke exposure: No Alcohol intake: current Substance use: never Substance use type: marijuana Last use: 03/10- Spiritual care concerns: No Exam Narrative: APPEARANCE: uncomfortable appearing Head: Normocephalic and atraumatic. EYES: PERRLA/EOMI, conjunctivae clear NOSE: No nasal drainage EARS: External ear normal in appearance THROAT: Oropharynx is clear. Mucous membranes are moist. NECK: Supple. No adenopathy, no masses. RESPIRATORY: Airway patent, respirations nonlabored. Clear to auscultation bilaterally, no rales, rhonchi, wheezing. CARDIOVASCULAR: Regular rate and rhythm without murmurs, rubs, or gallops. ABDOMINAL: no cva tenderness. Normoactive bowel sounds. Soft, nontender, nondistended. No rebound tenderness or guarding. MUSCULOSKELETAL: Extremities are warm and well-perfused. Moves all extremities well. No edema. NEURO: Normal speech. No focal neurologic deficits. SKIN: Skin is warm and dry. No rashes. PSYCHIATRIC: Normal affect/mood. Course Consultations Consultation #1: Spoke with Dr. Pratt, urology [employer], agrees with plan for pain control; do not feel imaging indicated at this time as an office stent removals have low risk of complication. Date: 04/02/22 Time: 17:21 Vital Signs Vital signs: Vital Signs Temperature 97.9 F 04/02/22 15:14 Pulse Rate 136 H 04/02/22 15:14 Respiratory Rate 14 04/02/22 15:14 Blood Pressure 126/89 04/02/22 15:14 Pulse Oximetry 98 04/02/22 15:14 Oxygen Delivery Room Air 04/02/22 15:14 Temperature 97.9 F 04/02/22 15:14 Pulse Rate 90 04/02/22 17:18 Respiratory Rate 13 04/02/22 17:18 Blood Pressure 121/80 04/02/22 16:47 Pulse Oximetry 98 04/02/22 17:03 Oxygen Delivery Room Air 04/02/22 15:14
[2022-04-02 17:03] VITALS: PULSE 84; RESP 21; O2SAT 98
[2022-04-02] MEDS: ONDANSETRON HCL ODT 4 MG TABLET PO (17:13)
[2022-04-02] MEDS: HYDROcodone/acetaminophen (*CRX) 5-325 MG TABLET 1 TAB PO (17:13)
[2022-04-02 17:18] VITALS: PULSE 90; RESP 13
[2022-04-02 17:45] VITALS: BP 114/70; PULSE 84; RESP 20; O2SAT 99
== END 2022-04-02 17:47 | disposition home or self-care (01) ==
PROVIDERS: Emergency Medicine; Emergency Provider Emergency Medicine
DX: R31.9 Hematuria, unspecified (principal); Z98.890 Other specified postprocedural states; Z96.0 Presence of urogenital implants; Z87.442 Personal history of urinary calculi; Z86.16 Personal history of COVID-19
CPT/HCPCS: 36415; 80053; 81001; 81025; 85025; 87086; 99283; A9270

== ENCOUNTER 2022-04-06 12:22 | Outpatient (CLI) | payer MEDICAID, SELFPAY ==
--- NOTE | ~2022-04-06 | US_ITS ---
EXAMINATION: US retroperitoneal comp DATE: 04/06/2022 13:12 INDICATION: Left ureteral stone. TECHNIQUE: Multiple ultrasound grayscale images of the kidneys were obtained. COMPARISON: CT abdomen and pelvis 03/26/2022 FINDINGS: The right kidney measures 10.3 x 3.7 x 5.4 cm. The left kidney measures 10.0 x 4.5 x 5.6 cm. The kidn eys demonstrate normal parenchymal echogenicity. There is mild left hydronephrosis and hydroureter. T here are 2 mm and 3 mm echogenic foci in left ureter. The bladder is normal. IMPRESSION: 1. Mild left hydronephrosis and hydroureter. 2. 2 mm and 3 mm echogenic foci in left ureter, which may be stones or hemorrhage. Reviewed, dictated and finalized at location A. IMPRESSION: 1. Mild left hydronephrosis and hydroureter. 2. 2 mm and 3 mm echogenic foci in left ureter, which may be stones or hemorrh age.
== END 2022-04-06 12:23 | disposition home or self-care (01) ==
PROVIDERS: Visit Provider Nurse Practitioner Adult Health
DX: N20.1 Calculus of ureter (principal); N13.30 Unspecified hydronephrosis
CPT/HCPCS: 76770